=== PATIENT | female | born 2000 | race Two or more races ===

== ENCOUNTER 2022-11-16 01:25 | Emergency (ER) | payer OTHER ==
[~2022-11-16] VITALS: Ht 165.1 cm; Wt 100.0 kg
[2022-11-16] MEDS ORDERED: ACETAMINOPHEN 325 MG TABLET PO ONE (02:15)
[2022-11-16 03:36] VITALS: BP 122/80
== END 2022-11-16 03:50 | disposition home or self-care (01) ==
LOC: EMS 01:29
DX: S09.90XA Unspecified injury of head, initial encounter (principal); X58.XXXA Exposure to other specified factors, initial encounter; Y93.89 Activity, other specified; Y92.89 Other specified places as the place of occurrence of the external cause; Y99.8 Other external cause status
CPT/HCPCS: 70450; 99284